=== PATIENT | female | born 1950 | race Caucasian/White ===

== ENCOUNTER 2018-06-06 08:32 | Day surgery (SDC) | payer OTHER ==
[~2018-06-06 08:32] MED LIST: Lactated Ringers 1,000 ML IV SCH; Lidocaine 1% 2 ML ONE; Lidocaine 1%/Sod Bicarbonate in NS 8.4% 1 ML Syringe IDERM PRN; Propofol 200 MG/20 ML SDV ONE; Sodium Chloride 0.9% 10 ML Syringe FLUSH PRN; fentaNYL 100 MCG/2 ML SDV ONE
--- NOTE | 2018-06-06 08:56 | HP ---
DATE OF ADMISSION: 06/06/2018 INTRODUCTION: A 67-year-old female presents to the surgery clinic for evaluation of colonoscopy. She has a family history of colon cancer with a brother who had it, but survived the treatment. She also is here for her timely screening. It has been over 10 years since she had her last colonoscopy. PAST MEDICAL HISTORY: The patient has no known allergies. CURRENT MEDICATIONS: That are significant are lisinopril, multiple [id number] medications, allopurinol, and aspirin. PAST SURGICAL HISTORY: Prior surgeries include breast biopsy x2, tonsillectomy, and umbilical hernia repair. FAMILY HISTORY: Negative. SOCIAL HISTORY: Negative. REVIEW OF SYSTEMS: GI: She has negative GI changes. CARDIOVASCULAR: Normal. RESPIRATORY: Normal. PHYSICAL EXAMINATION: HEENT: Normal. She wears glasses and sees adequately. NECK: She has no adenopathy or bruits. LUNGS: Clear bilaterally to auscultation. HEART: She has a normal sinus rhythm without murmur. ABDOMEN: Soft, nontender. No evidence of hernias. NEUROLOGIC: Within normal limits. ASSESSMENT: Family history of colon cancer and screening colonoscopy. PLAN: Risks, benefits, and expected outcomes of a colonoscopy were discussed with this patient. We will proceed on 06/06/2018. MARCIAL /[id number]
--- NOTE | 2018-06-06 09:11 | PCM.PREANE ---
Preanesthetic Assessment - Anesthesia/Transfusion/Family Hx Anesthesia History: Prior Anesthesia Without Reaction Family History of Anesthesia Reaction: No - Review of Systems General: No Symptoms Pulmonary: No Symptoms Cardiovascular: Other (Hypertension, controlled with medication. ) Gastrointestinal: No Symptoms Neurological: Headache (History of Migraines, none recently. ), Other (Fell about a year ago. Since her fall her back with occasionally cause her to have pain. ) Other: Reports: Anxiety - Physical Assessment NPO Status Date: 06/06/18 NPO Status Time: 05:15 Pulse: 77 O2 Sat by Pulse Oximetry: 97 Respiratory Rate: 16 Blood Pressure: 127/81 Temperature: 36.5 C Weight: 75 kg ASA Class: 2 Mental Status: Alert & Oriented x3 Airway Class: Mallampati = 1 Dentition: Reports: Partial (Lower) Thyro-Mental Finger Breadths: 3 Mouth Opening Finger Breadths: 3 ROM/Head Extension: Full Lungs: Clear to Auscultation, Normal Respiratory Effort Cardiovascular: Regular Rate, Regular Rhythm - Allergies Allergies/Adverse Reactions: Allergies Allergy/AdvReac Type Severity Reaction Status Date / Time No Known Allergies Allergy Verified 06/06/18 08:59 - Acknowledgements Anesthesia Type Planned: MAC Pt an Appropriate Candidate for the Planned Anesthesia: Yes Alternatives and Risks of Anesthesia Discussed w Pt/Guardian: Yes Pt/Guardian Understands and Agrees with Anesthesia Plan: Yes PreAnesthesia Questionnaire - CURRENT (IN HOUSE) MEDS Current Meds: Current Medications Lactated Ringer's (Ringers, Lactated) 1,000 mls @ 125 mls/hr IV ASDIRECTED RAZA Stop: 06/06/18 23:00 Last Admin: 06/06/18 08:55 Dose: 125 mls/hr Lidocaine/Sodium Bicarbonate (Buffered Lidocaine 1% In Ns 8.4%) 0.25 ml IDERM ONETIME PRN PRN Reason: Prior to IV Start Stop: 06/06/18 18:00 Last Admin: 06/06/18 08:54 Dose: 0.25 ml Sodium Chloride (Saline Flush) 10 ml FLUSH ASDIRECTED PRN PRN Reason: Keep Vein Open Stop: 06/06/18 18:00 Discontinued Medications Fentanyl (Sublimaze) Confirm Administered Dose 100 mcg .ROUTE .STK-MED ONE Stop: 06/06/18 07:06 Lidocaine HCl (Xylocaine-Mpf 1%) Confirm Administered Dose 2 mls @ as directed .ROUTE .STK-MED ONE Stop: 06/06/18 07:06 Propofol (Diprivan 20 Ml) Confirm Administered Dose 200 mg .ROUTE .STK-MED ONE Stop: 06/06/18 07:06
--- NOTE | 2018-06-06 09:49 | PCM48HPAN ---
Post Anesthesia Note - EVALUATION WITHIN 48HRS OF ANESTHETIC Vital Signs in Normal Range: Yes Patient Participated in Evaluation: Yes Respiratory Function Stable: Yes Airway Patent: Yes Cardiovascular Function Stable: Yes Hydration Status Stable: Yes Pain Control Satisfactory: Yes Nausea and Vomiting Control Satisfactory: Yes Mental Status Recovered: Yes Pulse Rate: 71 SaO2: 98 Resp Rate: 14 Temperature: 36.4 C Blood Pressure: 91/64
--- NOTE | 2018-06-07 07:13 | OR ---
DATE OF OPERATION: 06/06/2018 SURGEON: Maik Mcclelland MD PREOPERATIVE DIAGNOSIS: Screening colonoscopy. POSTOPERATIVE DIAGNOSIS: Screening colonoscopy. PROCEDURE: Total colonoscopy. ANESTHESIA: MAC. SPECIMEN: None. OPERATIVE FINDINGS: A few scattered sigmoid diverticula, otherwise normal. RECOMMENDATIONS: Followup screening colonoscopy in 10 years. However, the patient will be 77 at that time and we will need to assess the need for colonoscopy based on her medical condition. INDICATION FOR PROCEDURE: This 67-year-old female presents for screening colonoscopy. DESCRIPTION OF PROCEDURE: Adequate preparation, a colonoscope was inserted into the rectum. This was easily passed all the way to the cecum. Confirmation of the cecum was made by visualization of the ileocecal valve and palpation in the right lower quadrant. A photograph of the ileocecal valve was taken. Bowel prep was very good. On withdrawal of the scope, no abnormalities were noted except for a few scattered diverticula in the sigmoid colon. They should be of no consequence. Anal and rectal examination were normal. Air was suctioned from the colon and the scope was removed. ESTIMATED BLOOD LOSS: MMODAL /[id number]
== END 2018-06-06 10:31 | disposition home or self-care (01) ==
LOC: JD.SDS 08:32
PROVIDERS: ATTEND Surgery
DX: Z12.11 Encounter for screening for malignant neoplasm of colon (principal); K57.30 Diverticulosis of large intestine without perforation or abscess without bleeding; I10 Essential (primary) hypertension; Z79.899 Other long term (current) drug therapy; Z80.0 Family history of malignant neoplasm of digestive organs
CPT/HCPCS: 45378; J2704; J3010; J7120; J2001

== ENCOUNTER 2024-10-15 08:13 | Day surgery (SDC) | payer MEDICARE ==
[~2024-10-15 08:13] MED LIST changes: -Lactated Ringers 1,000 ML IV SCH; -Lidocaine 1% 2 ML ONE; -Lidocaine 1%/Sod Bicarbonate in NS 8.4% 1 ML Syringe IDERM PRN; -Propofol 200 MG/20 ML SDV ONE; +Sodium Chloride 0.9% 10 ML Syringe FLUSH SCH; -fentaNYL 100 MCG/2 ML SDV ONE
[2024-10-15] MEDS: Lactated Ringers 1,000 ML IV SCH (08:25)
[2024-10-15] MEDS ORDERED: Propofol 200 MG/20 ML SDV ONE (09:24)
[2024-10-15] MEDS ORDERED: Lidocaine 1% 4 ML ONE (09:24)
== END 2024-10-15 10:58 | disposition home or self-care (01) ==
LOC: JD.SDS 08:13
PROVIDERS: ATTEND Surgery
DX: Z12.11 Encounter for screening for malignant neoplasm of colon (principal); K62.1 Rectal polyp; I10 Essential (primary) hypertension; E78.5 Hyperlipidemia, unspecified; Z79.899 Other long term (current) drug therapy; Z80.0 Family history of malignant neoplasm of digestive organs
CPT/HCPCS: 45380; 88305; J2704; J7120; 00811; 99100; J3490